=== PATIENT | male | born 1960 | race Caucasian/White ===

== ENCOUNTER 2024-12-31 21:44 | Emergency (ER) | payer BC, SELFPAY ==
[2024-12-31 21:52] VITALS: BP 149/95; PULSE 97; RESP 16; TEMP 36.4; O2SAT 98; BMI 28.7
[2024-12-31 22:05] LABS: Appearance Urine Turbid (Clear); Bilirubin Urine Negative (Negative); Blood Urine Trace-intact (Negative); Color Urine Yellow (Yellow); Glucose Urine Negative (Negative); Ketones Urine Negative (Negative); Leukocyte Esterase Urine 1+ (Negative); Nitrite Urine Negative (Negative); Protein Urine Negative (Negative); Urobilinogen Urine 0.2 (0.2-1.0)
--- NOTE | 2024-12-31 22:26 | ED.MALEGU ---
HPI - Male Genitourinary General Date Seen: 12/31/24 Chief complaint: Urogenital Problems, Male Stated complaint: bladder infection? Time Seen by Provider: 12/31/24 21:47 Source: patient and family Mode of arrival: ambulatory Limitations: no limitations History of Present Illness HPI Narrative: This very pleasant 64-year-old gentleman presents here with dysuria and frequency of urination for the last 6 hours, this came on while he was at work, every 1/2 hour he feels like he has to pass urine, some a fair bit some only a little bit drops. No blood all within this, no discoloration, denies any nausea vomiting fevers chills or back pain associated with this no previous history of UTIs, no history of STDs, he is in a monogamous relationship he did take some ibuprofen approximately at 6:00 p.m., and maybe a little bit better with this. Denies any testicular or penile pain at all, or any discharge. Related Data Sexually active: Yes Home Medications ?Medication ?Instructions ?Recorded ?Confirmed No Known Home Medications 12/31/24 12/31/24 Allergies Allergy/AdvReac Type Severity Reaction Status Date / Time No Known Drug Allergies Allergy Verified 02/19/24 16:07 Review of Systems Status of ROS: Reports: 10 or more systems reviewed and unremarkable except as noted in History and below Exam Narrative: Exam Narrative: Delightful gentleman in no apparent distress Moore seen in room 1 his abdomen shows a normal abdomen with no tenderness to palpation no masses, no CVA tenderness bowel sounds are normal, with no organomegaly normal male genitalia is appreciated. Const: Vital Signs, click to edit/add: Vital Signs - 24 hr 12/31/24 21:52 Temperature 97.6 F Pulse Rate [Pulse Oximeter] 97 Respiratory Rate 16 Blood Pressure [Ri ght Upper Arm] 149/95 H Pulse Oximetry 98 Oxygen Delivery Me thod Room Air Documenting provider has reviewed patient's vital signs: yes Course Course ED Course: His urinalysis positive, I discussed with him we should treat him for his UTI, we will use Keflex which is good coverage for the most common organisms. I warned him about antibiotic associated diarrhea and symptomatic measures using ibuprofen, culture pending. Vital Signs Vital signs: Initial Vital Signs Temperature 97.6 F 12/31/24 21:52 Temperature Source Temporal Artery Scan 12/31/24 21:52 Pulse Rate 97 12/31/24 21:52 Respiratory Rate 16 12/31/24 21:52 Blood Pressure 149/95 H 12/31/24 21:52 Blood Pressure Mean 113 H 12/31/24 21:52 Blood Pressure Position Sitting 12/31/24 21:52 Pulse Oximetry 98 12/31/24 21:52 Oxygen Delivery Method Room Air 12/31/24 21:52 Vital Signs Temperature 97.6 F 12/31/24 21:52 Pulse Rate 97 12/31/24 21:52 Respiratory Rate 16 12/31/24 21:52 Blood Pressure 149/95 H 12/31/24 21:52 Pulse Oximetry 98 12/31/24 21:52 Oxygen Delivery Method Room Air 12/31/24 21:52 Temperature 97.6 F 12/31/24 21:52 Pulse Rate 97 12/31/24 21:52 Respiratory Rate 16 12/31/24 21:52 Blood Pressure 149/95 H 12/31/24 21:52 Pulse Oximetry 98 12/31/24 21:52 Oxygen Delivery Method Room Air 12/31/24 21:52 MDM - Male Genitourinary MDM Narrative Medical decision making narrative: During this evaluation of this patient I considered multiple differential diagnosis is which included the life-threatening such as appendicitis, aortic aneurysm, mesenteric ischemia, bowel perforation, volvulus, and bowel obstruction. Other differential diagnosis is include but are not limited to cholecystitis, pancreatitis, hepatitis, gastritis, GERD, diverticulitis, peptic ulcer disease, pyelonephritis/UTI, renal colic/stone, testicular torsion as well as other acute scrotal processes, inflammatory bowel disease, as well as other etiologies Medical Records Attestation: I reviewed the patient's medical records. Lab Data Attestation: I reviewed the patient's lab results. Labs: Lab Results 12/31/24 Range/Units 21:57 Urine Color Yellow (Yellow) Urine Appearance Turbid A (Clear) Urine pH 7.0 (5.0-8.5) Ur Specific Screven 1.020 (1.000-1.030) Urine Protein Negative (Negative) Urine Glucose (UA) Negative (Negative) Urine Ketones Negative (Negative) Urine Blood Trace-intact A (Negative) Urine Nitrite Negative (Negative) Urine Bilirubin Negative (Negative) Urine Urobilinogen 0.2 (0.2-1.0) Ur Leukocyte Esterase 1+ A (Negative) Urine RBC 0-2 (0-2) Urine WBC 10-25 A (0-5) Ur Squamous Epith Cells None (None-Few) Urine Bacteria Few A (None) Discharge Plan Discharge Clinical Impression: Urinary tract infection Patient Disposition: Home, Self-Care Condition: Stable Instructions: Urinary Tract Infection in Men (DC) Additional Instructions: Home, rest, follow up with no improvement, increasing fevers chills nausea vomiting or back pain with minutes on your kidneys, take lots of probiotics with the antibiotics, as you do not want antibiotic associated diarrhea. Ibuprofen 800 mg 3 times a day for the 1st or 2nd day is very helpful also, lots of fluids Activity Level: Light activity Discharge Diet: Regular Prescriptions: No Action No Known Home Medications Follow Up/Referrals: Provider,Not a Local [Non-Staff] - Stand Alone Forms: MyHealth Info Instructions
--- OUTSIDE RECORDS SUMMARY | 2024-12-31 22:29 | XMS_ITS | Encounter Summary ---
Author Organization [employer] Address [address] [address] Care Team Providers Care School Psychology Professor Name Role Phone Suellen Faye PA-C Primary Care Provider Encounter Details Date Type Department Care Team (Late st Contact Info) Description 07/29/2012 Consent for Procedure/Treatme nt [facility] Department RH INFORMED CONSENT RECORD Social History Tobacco Use Types Packs/Day Years Used Date Smoking Tobacco: Never Smokeless Tobacco: Never Alcohol Use Standard Drinks/Week Comments Not Asked 0 (1 standard drink = 0.6 oz pur e alcohol) Sex and Gender Information Value Date Recorded Sex Assigned at Not on file Legal Sex Male 5:12 AM CDT Gender Identity Not on file Sexual Orientation Not on file 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 on file Not on file Not on file documented as of this encounter Progress Notes * [employer], PROVIDER - 07/29/2012 12:00 AM CDT documented in this encounter Plan of Treatment Not on file documented as of this encounter Visit Diagnoses Not on filedocumented in this encounter Additional Health Concerns Infection Onset Date Last Indicated Resolved Time R/O COVID19 01/22/2021 01/22/202101/23/2021 4:01 AM MEDICATION AID R/O COVID19 12/09/2021 12/09/2021 12/10/2021 2:48 PM MEDICATION AID COVID19 12/09/2021 12/09/2021 12/29/2021 3:17 AM MEDICATION AID documented as of this encounter Care Teams School Psychology Professor Relationship Specialty Start Date End Date Suellen Faye PA-C [address] [place] [address] PCP - General Physician Superintendent Operations Division 01/24/16 documented as of this encounter
--- OUTSIDE RECORDS SUMMARY | 2024-12-31 22:29 | XMS_ITS | Referral Summary ---
Author Organization [employer] Address [address] [place] [address] Care Team Providers Care Oil Refiner Name Role Phone Provider, No Primary Primary Care Provider Unava ilable Provider, No Primary Unavailable Unavailable Allergies Active Allergy Reactions Criticality Noted Date Comments Adhesive Tape-Silicones Rash Medium 01/31/2017 Morphine (Pf) Other Low 01/31/2017 Anxiety Medications HYDROcodone 5mg-acetaminophen 325 mg (AKA: NORCO) 5-325 mg oral TabletIndications:L ocalized, primary osteoarthritis of ankle or foot, left Take 1-2 tablets by mouth every 6 hours as needed for pain. 40 tablet 7 Active Social History Tobacco Use Types Packs/Day Years Used Date Smoking Tobacco: Never Alcohol Use Standard Drinks/Week Comments Yes 5 (1 standard drink = 0.6 oz pur e alcohol) weekly Sex and Gender Information Value Date Recorded Sex Assigned at Not on file Legal Sex Male 3:07 AM BOOSTER OPERATOR Gender Identity Not on file Sexual Orientation Not on file Last Filed Vital Signs Vital Sign Reading Time Taken Comments Blood Pressure 119/72 01/31/2017 5:15 PM CDT Pulse 67 01/31/2017 5:27 PM CDT Temperature 36.3 C (97.4 F) 01/31/2017 1:50 PM CDT Respiratory Rate 16 01/31/2017 5:00 PM CDT Oxygen Saturation 96% 01/31/2017 5:27 PM CDT Inhaled Oxygen Concentration - - Weight 90.7 kg (200 lb) 01/31/2017 1:50 PM CDT Height 177.8 cm (5' 10) 01/25/2017 2:20 PM BOOSTER OPERATOR Body Mass Index 28.7 01/25/2017 2:20 PM BOOSTER OPERATOR Plan of Treatment Not on file Medical Devices Implanted Type Area Leak Patcher Device Identifier Shelf Expiration Date Model / Serial / Lot Pin K-Wire Trocar Pt. 6 .54 1.4mm - [id number] Implanted:Qty: 1 on 01/31/2017 by Russ De La Cruz DPM at [facility] Pin Left: Toe [employer] 71-024 / / Screw Cannulated [place] 4.0mm X 34mm - [id number] Implanted:Qty: 1 on 01/31/2017 by Russ De La Cruz DPM at [facility] Screw Left: Toe Trilliant 200-40-034 / / Screw Cannulated [place] 4.0mm X 28mm - [id number] Implanted:Qty: 1 on 01/31/2017 by Russ De La Cruz DPM at [facility] Screw Left: Toe Trilliant 200-40-028 / / Insurance [employer] [facility] [facility] [employer]ACH[employer]IL[employer] [id number] Care Teams Oil Refiner Relationship Specialty Start Date End Date Provider, No Primary . NACHO TORRES [id number] PCP - General 01/23/17 Provider, No Primary . NACHO TORRES [id number] 12/17/17 Additional Source Comments PLEASE NOTE: Replies to this message will not be received.[facility] and [facility]
--- OUTSIDE RECORDS SUMMARY | 2024-12-31 22:29 | XMS_ITS | Encounter Summary ---
Author Organization [facility] Address [address] [place] [id number] Care Team Providers Care Invoice Classification Clerk Name Role Phone Provider, No Primary Primary Care Provider Unava ilable Provider, No Primary Unavailable Unavailable Encounter Details Date Type Department Care Team (Late st Contact Info) Description 07/28/[address] [address] Social History Tobacco Use Types Packs/Day Years Used Date Smoking Tobacco: Never Assessed Sex and Gender Information Value Date Recorded Sex Assigned at Not on file Legal Sex Male 3:07 AM RADIATOR SPECIALIST Gender Identity Not on file Sexual Orientation Not on file documented as of this encounter Plan of Treatment Not on file documented as of this encounter Procedures Procedure Name Priority Date/Time Associated Diagnosis Comments RADIOLOGY - S 07/28/1980 8:53 PM CDT documented in this encounter Results * RADIOLOGY - S (07/28/1980 8:53 PM CDT) Anatomical Region Laterality Modality Other us Scan Kianna PROCEDURE NOTE Final Result documented in this encounter Visit Diagnoses Not on filedocumented in this encounter Care Teams Invoice Classification Clerk Relationship Specialty Start Date End Date Provider, No Primary . NACHO TORRES [address] PCP - General 01/23/17 Provider, No Primary . NACHO TORRES [id number] 12/17/17 documented as of this encounter Additional Source Comments PLEASE NOTE: Replies to this message will not be received.[facility] and [facility]
--- OUTSIDE RECORDS SUMMARY | 2024-12-31 22:29 | XMS_ITS | Clinical Summary ---
Author Organization [facility] Address [place], [place] [address] Care Team Providers Care Second Watch Sergeant Name Role Phone Wilmar Holt MD Primary Care Provider Allergies Active Allergy Reactions Criticality Noted Date Comments Adhesive Tape-Silicones Rash Medium 01/31/2017 EKG patches, steri strips Morphine Anxiety 11/15/2016 Morphine (Pf) Other - Describe In Comment Field Low 01/31/2017 Anxiety Medications clobetasol cream 0.05% (TEMOVATE) 0.05 % creamIndication s:Rash Apply topically to affected area(s) two times daily. 30 g 3 Active fluorouracil 5% topical (EFUDEX) 5 % creamIndication s:Actinic keratoses Apply to the scalp two times daily for two weeks. 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): Symptoms resolved Resolved Problems Problem Noted Date Diagnosed Date Resolved Date Gastro-esophageal reflux dis ease with esophagitis 02/11/2024 02/11/2024 Immunizations Name Administration Dates Next Due Influenza Virus, Unspecified 10/01/2016 Influenza, IIV3 (Age 6-35 mos) 10/16/2015 Influenza, IIV3 (Age >=3 years) 09/17/20 08,09/10/2006,10/09/2005,09/23/20 03,09/09/1999 Influenza, IIV4 09/19/2019,10/20/2014 Influenza, IIV4 (=>6mos) MDV 09/21/2020, 09/19/2019,10/21/2018,08/22/20 17,10/30/2016 Td (Age >=7 Years) 06/02/2003,11/18/1995 Tdap 11/22/2019,11/06/2011 Zoster (Shingrix-RZV, recombinant) 02/10/2020, Family History Relation Name Status Comments Father (Age 91) Social History Tobacco Use Types Packs/Day Years Used Date Smoking Tobacco: Never Smokeless Tobacco: Never Tobacco Cessation:Counseling Given: Not Answered Alcohol Use Standard Drinks/Week Comments Yes 0 (1 standard drink = 0.6 oz pur e alcohol) 5 drinks per week PHQ-2 Answer Date Recorded PHQ-2 TOTAL SCORE 0 02/11/2024 Social Connections Answer Date Recorded Do you often feel lonely or isolated from those around you? 0 02/11/2024 Financial Resource Strain Answer Date R ecorded Difficulty of Paying Living Expenses 3 02/11/2024 Difficulty of Paying Living Expenses Not on file 02/11/2024 Food Insecurity Answer Date Recorded Do you worry your food will run out before you are able to buy more? 1 02/11/2024 Transportation Needs Answer Date Record ed Does lack of transportation keep you from medica l appointments? 1 02/11/2024 Does lack of transportation keep you from work, meetings or getting things that you need? 1 02/11/2024 Housing Stability Answer Date Recorded What is your housing situation today? 1 02/11/2024 Utilities Answer Date Recorded Do you have trouble paying f or utilities (for example, heat, electricity, water, phone)? 1 02/11/2024 Sex and Gender Information Value Date Recorded Sex Assigned at Not on file Legal Sex Male 5:47 AM LAB ENGINEER Gender Identity Not on file Sexual Orientation Not on file Obstetrics History Last Filed Vital Signs Vital Sign Reading Time Taken Comments Blood Pressure 102/68 02/11/2024 9:06 AM CDT Pulse 60 02/11/2024 9:06 AM CDT Temperature 37 C (98.6 F) 01/23/2017 10:11 AM LAB ENGINEER Respiratory Rate 18 01/01/2020 11:32 AM LAB ENGINEER Oxygen Saturation 98% 01/01/2020 11:32 AM LAB ENGINEER Inhaled Oxygen Concentration - - Weight 90.7 kg (200 lb) 02/11/2024 9:06 AM CDT Height 176.5 cm (5' 9.5) 02/11/2024 9:06 AM CDT Body Mass Index 29.11 02/11/2024 9:06 AM CDT Plan of Treatment Health Maintenance Due Date Last Done Comments HIV for age 15-65 1977 Pneumococcal series for age 50+ (1 of 1 - PCV) 2012 COVID-19 vaccine series (2 - season) 2024 09/14/2021 Influenza for age 50-64 07/20/2024 09/21/20 20, 09/19/2019, 09/19/2019, Additional history exists BMI (ht and wt on same day) for age 18+ 02/10/2025 02/11/2024, 12/27/2022, 11/08/2021, Additional history exists Depression screening for age 12+ 02/10/2025 02/11/2024, 12/27/2022, 11/08/2021, Additional history exists Lipids for age 45-75 02/10/2029 02/11/2024, 12/27/2022, 11/08/2021, Additional history exists Tetanus booster 11/22/2029 11/22/2019, 10/19, 06/02/2003, Additional history exists Colonoscopy through age 75 12/05/203112/05, 12/05/2021, 12/05/2021, Additional history exists RSV vaccine for adults or (1 - 1-dose 75+ series) 2037 Hepatitis C screening for ag e 18-79 Completed 10/21/2018 Tdap Completed 11/22/2019, 11/06/2011 Zoster (shingles) series for age 50+ Completed 02/10/2020, 09/02/2019 Procedures Procedure Name Priority Date/Time Associated Diagnosis Comments LIPID PANEL W REFLEX MEASURED LDL Routine 02/11/2024 9:48 AM CDT Lipid screening SCAN-COLONOSCOPY 12/05/2021 12:0 0 AM LAB ENGINEER ANTI HCV Routine 10/21/2018 10:56 AM LAB ENGINEER Encounter for hepatitis C screening test for low risk patient from Last 3 Months or Most Recently Relevant to Health Maintenance Results * (ABNORMAL) LIPID PANEL W REFLEX MEASURED LDL (02/11/2024 9:48 AM CDT) Pathologist [facility] CHOLESTEROL,TOTAL 190 100 - 199 mg/dL 02/11/2024 3:36 PM CDT [facility] Comment: Cholesterol, Total Reference Ranges Desirable <200 mg/dL Borderline 200-239 mg/dL High >=240 mg/dL TRIGLYCERIDES 115 <150 mg/dL 02/11/2024 3:36 PM CDT [facility] HDL CHOLESTEROL 39(L) >40 mg/dL 3:36 PM CDT [facility] NON-HDL CHOLESTEROL 151(H) <145 mg/dl 02/11/2024 3:36 PM CDT [facility] CHOL/HDL RATIO 4.87(H) <4.50 02/11/2024 3:36 PM CDT [facility] LDL CHOLESTEROL 128 <=130 mg/dL 02/11/2024 3:36 PM CDT [facility] VLDL CHOLESTEROL 23 <=30 mg/dL 02/11/2024 3:36 PM CDT [facility] PROVIDER ORDERED STATUS RANDOM 02/11/2024 3:36 PM CDT [facility] Blood BLOOD SPECIMEN / Unknown Venipuncture / Unknown 02/11/2024 9:48 AM CDT 02/11/2024 9:48 AM CDT Wilmar Holt MD CHEMISTRY Final R esult [facility] [address] [place] [address], * SCAN-COLONOSCOPY (12/05/2021 12:00 AM LAB ENGINEER) us Scanner OTHER Final Result * ANTI HCV (10/21/2018 10:56 AM LAB ENGINEER) HEPATITIS C ANTIBODY Non-React audrey Non-React audrey 10/22/2018 2:53 AM LAB ENGINEER [facility] Comment:Antibodies to HCV no t detected; does not exclude the possibility of exposure to HCV. Blood BLOOD SPECIMEN / Unknown Venipuncture / Unknown 10/21/2018 10:56 AM LAB ENGINEER 10/21/2018 10:59 AM LAB ENGINEER us Wilmar Holt MD SEND OUTS Final R esult [facility] [address] [place] [address], from Last 3 Months or Most Recently Relevant to Health Maintenance Insurance Care Teams Second Watch Sergeant Relationship Specialty [place] [address] [place] [address] PCP - General Family Practice 12/25/19
--- OUTSIDE RECORDS SUMMARY | 2024-12-31 22:29 | XMS_ITS | Encounter Summary ---
Author Organization [employer] Address [address], [place] [address] Care Team Providers Care Human Resources Generalist Name Role Phone Suellen Faye PA-C Primary Care Provider Encounter Details Date Type Department Care Team (Late st Contact Info) Description 01/20/2003 Hospital External to Lucas Cruz MD [address] [place] [address] [place] [id number] [facility] Social History Tobacco Use Types Packs/Day Years Used Date Smoking Tobacco: Never Smokeless Tobacco: Never Alcohol Use Standard Drinks/Week Comments Yes 0 (1 standard drink = 0.6 oz pur e alcohol) occ Sex and Gender Information Value Date Recorded [...] as of this encounter Progress Notes * Lucas Cruz - 01/20/2003 12:00 AM REIMBURSEMENT COUNSELOR BURSEMENT COUNSELOR documented in this encounter Plan of Treatment Not on file documented as of this encounter Visit Diagnoses Not on filedocumented in this encounter Additional Health Concerns Infection Onset Date Last Indicated Resolved Time R/O COVID19 01/22/2021 01/22/2021 01/23/2021 4:01 AM REIMBURSEMENT COUNSELOR R/O COVID19 12/09/2021 12/09/2021 12/10/2021 2:48 PM REIMBURSEMENT COUNSELOR COVID19 12/09/2021 12/09/2021 12/29/2021 3:17 AM REIMBURSEMENT COUNSELOR documented as of this encounter Care Teams Human Resources Generalist Relationship Specialty Start Date End Date Suellen Faye PA-C [address] [place] [address] PCP - General Physician Paraprofessional Education Assistant 01/24/16 documented as of this encounter
--- OUTSIDE RECORDS SUMMARY | 2024-12-31 22:29 | XMS_ITS | Encounter Summary ---
Author Organization [facility] Address [address] [place] [address] Care Team Providers Care Family Support Coordinator Name Role Phone Provider, No Primary Primary Care Provider Unava ilable Provider, No Primary Unavailable Unavailable Encounter Details Date Type Department Care Team (Late st Contact Info) Description 05/[birth year]/[address] [address] Social History Tobacco Use Types Packs/Day Years Used Date Smoking Tobacco: Never Assessed Sex and Gender Information Value Date Recorded Sex Assigned at Not on file Legal Sex Male 3:07 AM VENETIAN BLIND MACHINE OPERATOR Gender Identity Not on file Sexual Orientation Not on file documented as of this encounter Plan of Treatment Not on file documented as of this encounter Procedures Procedure Name Priority Date/Time Associated Diagnosis Comments RADIOLOGY - S 05/29/1969 8:53 PM CDT documented in this encounter Results * RADIOLOGY - S (05/29/1969 8:53 PM CDT) Anatomical Region Laterality Modality Other us Scan Kianna PROCEDURE NOTE Final Result documented in this encounter Visit Diagnoses Not on filedocumented in this encounter Care Teams Family Support Coordinator Relationship Specialty Start Date End Date Provider, No Primary . NACHO TORRES [address] PCP - General 01/23/17 Provider, No Primary . NACHO TORRES [id number] 12/17/17 documented as of this encounter Additional Source Comments PLEASE NOTE: Replies to this message will not be received.[facility] and [facility]
--- OUTSIDE RECORDS SUMMARY | 2024-12-31 22:29 | XMS_ITS | Clinical Summary ---
Author Organization [employer] Address [address] [place] [address] Care Team Providers Care Pack Worker Name Role Phone Provider, No Primary Primary [...] on file Legal Sex Male 3:07 AM RIGGING FOREMAN Gender Identity Not on file Sexual Orientation [...] 177.8 cm (5' 10) 01/25/2017 2:20 PM RIGGING FOREMAN Body Mass Index 28.7 01/25/2017 2:20 PM RIGGING FOREMAN Plan of Treatment Not on file Medical Devices Implanted Type Area Spanisher Device Identifier Shelf Expiration Date Model / Serial / Lot Pin K-Wire Trocar Pt. 6 .54 1.4mm - [id number] Implanted:Qty: 1 on 01/31/2017 by Russ De La Cruz DPM at [facility] Pin Left: Toe [employer] 71-024 / / Screw Cannulated [place] 4.0mm X 34mm - [id number] Implanted:Qty: 1 on 01/31/2017 by Russ De La Cruz DPM at [facility] Screw Left: Toe Trilliant 200-40-034 / / Screw Cannulated [place] 4.0mm X 28mm - [id number] Implanted:Qty: 1 on 01/31/2017 by Russ De La Cruz DPM at [facility] Screw Left: Toe Trilliant 200-40-028 / / Insurance [facility] [employer] [id number] Care Teams Pack Worker Relationship Specialty Start Date End Date Provider, No Primary . NACHO TORRES [address] PCP - General 01/23/17 Provider, No Primary . NACHO TORRES [id number] 12/17/17 Additional Source Comments PLEASE NOTE: Replies to this message will not be received.[facility] and [facility]
--- OUTSIDE RECORDS SUMMARY | 2024-12-31 22:29 | XMS_ITS | Encounter Summary ---
Author Organization [employer] Address [address] [address] Care Team Providers Care Anatomic Pathologist Name Role Phone Suellen Faye PA-C Primary Care Provider Encounter Details Date Type Department Care Team (Latest Contact Info) Description 01/30/1999 Orders Only Blayne Cristina Social History Tobacco Use Types Packs/Day Years [...] R/O COVID19 01/22/2021 01/22/2021 01/23/2021 4:01 AM E COMMERCE RETAILER R/O COVID19 12/09/2021 12/09/2021 12/10/2021 2:48 PM E COMMERCE RETAILER COVID19 12/09/2021 12/09/2021 12/29/2021 3:17 AM E COMMERCE RETAILER documented as of this encounter Care Teams Anatomic Pathologist Relationship Specialty Start Date End Date Suellen Faye PA-C [address] [place] [address] PCP - General Physician Recordak Operator 01/24/16 documented as of this encounter
--- OUTSIDE RECORDS SUMMARY | 2024-12-31 22:29 | XMS_ITS | Encounter Summary ---
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 NACHO TORRES [address] PCP - General 01/23/17 Provider, No Primary . NACHO TORRES [id number] 12/17/17 documented as of this encounter Additional Source Comments PLEASE NOTE: Replies to this message will not be received.[facility] and [facility]
--- OUTSIDE RECORDS SUMMARY | 2024-12-31 22:29 | XMS_ITS | Encounter Summary ---
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
--- OUTSIDE RECORDS SUMMARY | 2024-12-31 22:30 | XMS_ITS | Encounter Summary ---
Author Organization [employer] Address [address], [place] [address] Care Team Providers Care Merchant Patroller Name Role Phone Suellen Faye PA-C Primary Care Provider Encounter Details Date Type Department Care Team (Late st Contact Info) Description 04/08/2016 Emergency Room External to [facility] ARM INJURY Social History Tobacco Use Types Packs/Day Years [...] R/O COVID19 01/22/2021 01/22/2021 01/23/2021 4:01 AM TOPSTITCHER ZIGZAG R/O COVID19 12/09/2021 12/09/2021 12/10/2021 2:48 PM TOPSTITCHER ZIGZAG COVID19 12/09/2021 12/09/2021 12/29/2021 3:17 AM TOPSTITCHER ZIGZAG documented as of this encounter Care Teams Merchant Patroller Relationship Specialty Start Date End Date Suellen Faye PA-C [address] [place] [address] PCP - General Physician Health/Safety Job Titles 01/24/16 documented as of this encounter
--- OUTSIDE RECORDS SUMMARY | 2024-12-31 22:30 | XMS_ITS | Data Portability ---
Author Organization [place] - [facility] Address [address] [place] [address] Assessment Encounter Date Assessment Date Assessment LastModified by Organization Details LastModified Time 07/26/2017 07/26/2017 6 months status post first metatarsocuneiform arthrodesis hemorrhage correction left, left ankle injury Discuss continued care plan with the patient. Overall he is doing well with regard to the left midfoot with no limitations no difficulties. I did add an extrinsic forefoot post to the left device for better midfoot control. For the left ankle dispensed a Tri-Lock to be used as much as needed for the next 2-4 weeks. See him back at that point based on how he is doing [email or web address] Not available 07/29/2017 11:19:18 09/06/2017 09/06/2017 Segment status p ost first metatarsocuneiform arthrodesis, hammer digit correction left Overall he seems to be doing fairly well. Able to walk up to 2 miles at this point including running. Discussed monitoring. She has some on and off pain at this point we will plan on seeing him back in the next 2-3 months if there continues to be discomfort otherwise as needed [email or web address] Not available 09/06/2017 23:46:11 11/08/2017 11/08/2017 9 months S/P 1st metatarsocuneiform arthrodesis, hammerdigit correction left I advised patient and his that I have no concerns, he is doing well both clinically and radiographically. No limitations this date. Advised patient to continue with orthotic use. Return to the clinic on a yearly basis. [email or web address] Not available 11/08/2017 11:09:38 02/07/2018 02/07/[address] first metatarsocuneiform arthrodesis, hammer digit correction left , pronation syndrome Discussed continued care plan with the patient overall. We will proceed with casting for new orthotic devices. Would like a second pair at the same time. We will see him back in 3 weeks for dispensing and fitting. [email or web address] Not available 02/07/2018 20:59:52 02/28/2018 02/28/2018 Status post firs t metatarsocuneiform arthrodesis, hammer digit syndrome left, pronation syndrome, history of midfoot arthralgia. All aspects of orthotic use have been explained in detail. We discussed the break-in instructions with appropriate shoe gear. Several locations were discussed relative to purchasing shoe gear that will appropriately accept an orthotic. The patient is aware they may begin wearing the orthotics with the existing shoe gear. Orthoses were dispensed to patient today after being fitted to the patient's feet in both weight-bearing and non-weight bearing attitudes. The patient was instructed to gradually increase the amount of time they are wearing the orthoses until they are wearing the orthoses timers inspector. The guidelines were discussed as an hour the first day followed by two and three hours the respective second and third days, etc. On day six, the patient can wear the orthotics at all times. The patient seemed to understand all aspects of orthotic therapy and the subsequent rationale for their use. was instructed to call the office if any signs of irritation were noted including redness, blistering, or callous formation or should questions or concerns arise. An appointment has been scheduled for 4 weeks for further evaluation. [email or web address] Not available 02/28/2018 14:48:54 Plan of Treatment Reminders Order Date Submit Date Provider Last Modified By Organization Details Last Modified Time Details Appointments None recorded. Lab None recorded. Referral None recorded. Procedures orthotic casting (PROC) 2017 018 MITZI Garcia DPM, [address] [place], [address], 08:40:26 orthotic casting (PROC) 2017 018 MITZI Garcia DPM, [address] [place], [address], 8 08:40:12 orthotic casting (PROC) 2017 018 MITZI Garcia DPM, [address] [place], [address], 8 08:39:46 orthotic casting (PROC) 2017 018 MITZI Garcia DPM, [address] [place], [address], 8 08:39:38 Surgeries None recorded. Imaging None recorded. Medication Orders None recorded. Patient TargetsNo targets recorded. Patient Instructions Encounter Date Encounter Id Patient Instructions Last Modified By Organization Details Last Modified Time 07/26/2017 [id number] ankle sprain: care instructions [email or web address] Not available 07/30/2017 08:24:06 Reason for Referral None Reported. Results Created Date Observation Date Name Description Value Unit Range Abnormal Flag Note LastModifiedBy Organization Detail LastModifiedTime Result Notes None recorded. Problems Name Problem SNOMED Code Status Onset Date Resolution Date Notes Provider Name and Address Organization Details Recorded Time Osteoarthritis of foot joint 909664777 Active 2016 Russ De La Cruz DPM [address] [place], [address], [facility] 7 14:09:33 Problem Notes None recorded. Procedures Surgical History Date Name Laterality Status Provider Name and Address Organization Details Recorded Time Foot Surgery completed Esha Ferrari [facility] 12/21/2016 10:34:49 Imaging Results None recorded. Procedure Notes None recorded. Medical Equipment None Reported. Allergies No known drug allergies Medications Name Sig Start Date Stop Date Status Note LastModified by Organization Details LastModified Time hydrocodone 5 mg-acetaminop hen 325 mg tablet 2016 completed Not Available Not Available Not Available amoxicillin 875 mg tablet active Not Available Not Availabl e Not Available Vitals Date Recorded Body height Body mass index (BMI) Body weight Provider Name and Address Organization Details Last Updated DateTime 07/26/2017 177.8 cm 28.7 kg/m2 76089.47 g Juanita Amanda [facility] 07/26/2017 10:39:26 Date Recorded Body height Body mass index (BMI) Body weight Provider Name and Address Organization Details Last Updated DateTime 09/06/2017 177.8 cm 28.7 kg/m2 96008.47 g Chantel Thomas [facility] 09/06/2017 09:35:01 Date Recorded Body height Body mass index (BMI) Body weight Provider Name and Address Organization Details Last Updated DateTime 11/08/2017 177.8 cm 28.7 kg/m2 45564.47 deon Lay [facility] 11/08/2017 10:29:02 Date Recorded Body height Body mass index (BMI) Body weight Provider Name and Address Organization Details Last Updated DateTime 02/07/2018 177.8 cm 28.7 kg/m2 96870.47 deon Thomas [facility] 02/07/2018 11:56:32 Social History Question Answer Notes LastModified by Organizat ion Details LastModified Time Tobacco Smoking Status [facility] 12/21/2016 10:33:47 What Is Your Level Of Alcohol Consumption? Occasional Information not available 12/21/2016 Marital Status Informatio n not available 12/21/2016 What Was The Date Of Your Most Recent Tobacco Screening? 02/07/2018 Information n ot available 06/11/2019 Sex: Unknown Functional Status None recorded. Mental Status None recorded. Family History Nothing Reported. Medical History Condition Response Coronary Artery Disease N Gout N Edema N Arthritis N Blood Clot N Cancer N Stroke N Leg or Foot Ulcers N Raynaud's Disease N Polio N Rheumatoid Arthritis N Headaches N Fibromyalgia N Kidney Disease N Artificial Joints N Bleeding Disorder N Tuberculosis N AIDS/HIV N Asthma N Substance Abuse N Peripheral Vascular Disease N Hepatitis N Pulmonary Embolism N Hernia N Lung Disease N Pacemaker N Deep Vein Thrombosis N Varicose Veins N Hudson Bite N Liver Disease N Organ Transplant N Foot Deformity N Dialysis N Dyslipidemia N Thyroid Problems N Anemia N Back Pain N Diabetes N Seizures/Epilepsy N Heart Disease N Hypertension N Osteoporosis N Past Encounters Encounter ID Performer Location Encounter Start Date Encounter Closed Date Diagnosis/Indication Diagnosis SNOMED-CT Code Diagnosis ICD10 Code Diagnosis Note [id number] Russ De La Cruz DPM Main Office [address] [place] [address] 12/21/2016 10:22:57 12/21/2016 12:01:09 Osteoarthritis of foot joint 836388032 M19.079 Exostosis 202097936 M77. 9 Hammer toe 089002968 M20 .42 Pronation deformity of the foot 511729487 M21.6X9 [id number] Russ De La Cruz DPM Main [address] [place] [address] 02/02/2017 11:30:06 02/02/2017 13:05:51 Postoperative visit 714438082 Z09 Osteoarthr itis of foot joint 085845124 M19.079 [id number] Russ De La Cruz DPM Main [address] [place] [address] 02/22/2017 11:20:06 02/22/2017 12:19:39 Osteoarthritis of foot joint 282575124 M19.079 Postoperative care 91289 9007 Z48.89 [id number] Russ De La Cruz DPM [address] [place] [address] 03/15/2017 10:09:25 03/15/2017 11:06:48 Osteoarthritis of foot joint 091587211 M19.079 [id number] uRss De La Cruz DPM Main [address] [place] [address] 04/05/2017 09:58:54 04/05/2017 11:12:04 Osteoarthritis of foot joint 016584215 M19.079 Postoperative care 20790 9007 Z48.89 [id number] Russ eD La Cruz DPM [address] [place] [address] 04/26/2017 09:55:43 04/26/2017 10:37:13 Osteoarthritis of foot joint 994454538 M19.079 Postoperative care 87859 9007 Z48.89 [id number] Russ De La Cruz DPM Main [address] [place] [address] 05/24/2017 10:04:59 05/24/2017 10:40:04 Osteoarthritis of foot joint 983842011 M19.079 Postoperative care 13651 9007 Z48.89 [id number] Russ De La Cruz DPM Main [address] [place] [address] 07/26/2017 09:51:36 07/26/2017 11:02:11 Postoperative visit 143195747 Z09 Osteoarthr itis of foot joint 816639724 M19.079 Sprain of ankle 13248438 S93.412A [id number] Russ De La Cruz DPM Main [address] [place] [address] 09/06/2017 09:29:25 09/06/2017 09:53:30 Osteoarthritis of foot joint 092374395 M19.079 [id number] Russ De La Cruz DPM Main [address] [place] [address] 11/08/2017 10:22:59 11/08/2017 11:12:41 Osteoarthritis of foot joint 791470593 M19.079 [id number] Russ De La Cruz DPM Main [address] [place] [address] 02/07/2018 11:52:04 02/07/2018 12:21:57 Osteoarthritis of foot joint 113651980 M19.072 Pronation deformity of the foot 848702754 M21.6X9 Pronation of foot 819902 03 M21.6X1 M21.6X2 [id number] Russ De La Cruz DPM [address] [place] [address] 02/28/2018 13:27:41 02/28/2018 14:26:45 Congenital pes planus of left foot 7215902793 1962765 Q66.52 Congenital pes planus of right foot 0831912245 4879764 Q66.51 Pronation deformity of the foot 949390517 M21.6X1 M21.6X2 Health Concerns Section Related Observation LastModified by Organization Detai ls LastModified Time None Recorded Concern Status LastModified by Organization Details LastModified Time None Recorded Advance Directives Directive None Recorded Payers Encounter Date Sequence Insurance Name Policy Number Policy Mendieta Covered Member ID Mendieta Member ID Guarantor Name 07/26/2017 1 [employer] [employer] 113 Kobi Tran [id number] Kobi Tran 09/06/2017 1 [employer] [employer] [place] 113 Kobi Tran [id number] Kobi Tran 11/08/2017 1 [employer] [employer] 113 Kobi Tran [id number] Kobi Tran 02/07/2018 1 [facility]: [employer] EMPLOYEE PROGRAM 113 Kobi Tran [id number] Kobi Tran 02/28/2018 1 [facility] [employer]: [employer] 113 Kobi Tran [id number] Kobi Tran Notes Date Note Type Note Provider Name and Address Organization Details Recorded Time 7 text/html Return visit for patient 6 months status post first metatarsocuneiform arthrodesis and hammer digit correction continues to do well overall. Did have a slip injury about a month ago twisted his left heel with a bit of soreness at times but otherwise doing well with regard to the left midfoot. Russ De La Cruz DPM [address] [place], [address], [facility] 07/29/2017 11:20:40 7 text/html return visit for patient 7 months s/p first metatarsocuneiform arthrodesis, hammer digit correction left. Doing better overall. Also doing well with regard to the left ankle injury. Russ De La Cruz DPM [address] [place], [address], [facility] 09/06/2017 23:46:29 7 text/html CC; OsteoarthritisDaniel returns with his 9 months S/P 1st metatarsocuneiform arthrodesis, hammerdigit correction left. Patient relates the side of the foot tends to pop out. He is also having strange feelings to the left 2nd digit when he gets up in the morning. He has returned to running and other activities of daily living. Russ De La Cruz DPM [address] [place], [address], [facility] 11/08/2017 11:34:08 8 text/html Return visit for patient follow-up orthotic devices. Generally has been doing quite well but feels like the devices have worn I would like to proceed with new devices. Russ De La Cruz DPM [address] [place], [address], [facility] 02/12/2018 22:09:15 8 text/html Patient returns to pick 2 pair of custom molded orthotics. They deny any new complaints or concerns today. Russ De La Cruz, LENA [address] [place], [address], [facility] 02/28/2018 14:49:15
--- OUTSIDE RECORDS SUMMARY | 2024-12-31 22:30 | XMS_ITS | Clinical Summary ---
Author Organization [facility] Address [address] [place] [address] Care Team Providers Care Solutions Architect Consultant Name Role Phone Suellen Faye PA-C Primary Care Provider Source Comments You are receiving this document as you are listed as the primary care provider,follow-up provider, or the patient has been referred to you for consultation.This is in compliance with the Medicare andMedicaid EHR Incentive Program,which states Providers who transition their patient to another setting of careor provider of care or refers their patient to another provider of care shouldprovide summary care record for each transition of care or referral. [facility] Allergies Active Allergy Reactions Criticality Noted Date Comments Adhesive Rash Medium 06/16/2019 EKG silicone Steri strips Morphine Anxiety Medium 11/15/2016 Medications clobetasol (TEMOVATE) 0.05 % cream Apply topically. 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 [address] [address] [address] [place] [address] Enedina Bolaños DO Pain in both knees, unspecified chronicity 10/28/2024 3:10 PM OVERHEAD CLEANER MAINTAINER Office Visit [facility] [address] [address] [address] [place] [id number] Enedina Bolaños, Primary osteoarthritis of left knee (Primary Dx); Acute pain of both knees from Last 3 Months Immunizations Immunization Administration Dates Next Due Flu Vac (3+ yrs) 09/10/2006, 5,09/23/2003,1998 Flu Vac Preserv Free (3+yrs) 10/16/2015 Influenza IIV4 (Quadrivalent ) 0.5mL (17771) 10/20/2014 Influenza Vaccine (3+years) ([facility]) 09/17/2008 Influenza, Unspecified Formulation 10/01/2016 Td 06/02/2003,11/18/1995 Tdap 11/06/2011 Varicella 01/19/1999(Deferred: Immune by Savita romo) Family History Medical History Relation Name Comments Cancer, Prostate Father Diabetes, Type II Father Cataract Mother Coronary Artery Disease Mother Diabetes, Type II Mother Hypertension Mother Inflammatory Bowel Disease Mother U lcerative colitis, diagnosed in her 40's, colectomy in her 50's Macular Degeneration Mother Hypertension Brother 3 Cerebrovascular Disease Maternal Grandmother Cancer, Prostate Other 2 Paternal Un john Coronary Artery Disease Paternal Grandmother of [place] 70's Relation Name Status Comments Father (Age 90 cancer) Mother Alive Brother 1 Alive Brother 2 Alive Brother 3 Daughter Alive Maternal Grandfather Maternal Grandmother Other 1 Alive Other 2 Paternal Grandfather Paternal Grandmother Sister 1 Alive Sister 2 Alive Son 1 Alive Son 2 Alive Social History Tobacco Use Types Packs/Day Years [...] file Not on file Not on file Last Filed Vital Signs Vital Sign Reading Time Taken Comments Blood Pressure 129/89 08/27/2024 6:03 PM CDT Pulse 60 08/27/2024 6:03 PM CDT Temperature 36.7 C (98 F) 10/28/2024 3:14 PM OVERHEAD CLEANER MAINTAINER Respiratory Rate 16 08/28/2023 3:08 PM CDT Oxygen Saturation 100% 08/28/2023 3:08 PM CDT Inhaled Oxygen Concentration - - Weight 93 kg (205 lb) 10/28/2024 3:14 PM OVERHEAD CLEANER MAINTAINER Height 175.3 cm (5' 9) 10/28/2024 3:14 PM OVERHEAD CLEANER MAINTAINER Body Mass Index 30.27 10/28/2024 3:14 PM OVERHEAD CLEANER MAINTAINER Plan of Treatment Health Maintenance Due Date Last Done Comments Diabetes Screening- (based on age and BMI) 1960 Hep C Screening (Preventive Services) 1960 HIV Screening (Preventive Services) 1978 Adult Preventive Visit 12/16/2016 6, 07/20/2010, 05/30/2006, Additional history exists Colonoscopy 11/02/2020 11/02/2015, 07/20, 07/29/2012 Cholesterol 12/16/2020 12/16/2015, 11/2009, 05/30/2006, Additional history exists PSA Screening Discussion 12/27/2023 023, 12/16/2015, 01/20/2013, Additional history exists COVID-19 Vaccine ( season) 2024 09/14/2021 Influenza (#1) 2024 09/21/2020, 11/0 11/2018, 10/21/2018, Additional history exists DTaP/Tdap/Td (3 - Tdap) 11/22/2029 11/22/19 20, 11/06/2011, 06/02/2003, Additional history exists RSV (1 - 1-dose 75+ series) 2037 Zoster/Shingles Completed 02/10/2020, 09/02/2019 HepA Aged Out No longer eligi ble based on patient's age to complete this topic HepB Aged Out No longer eligi ble based on patient's age to complete this topic Hib Aged Out No longer eligi ble based on patient's age to complete this topic IPV (Polio) Aged Out No longer eligi ble based on patient's age to complete this topic MCV4 Aged Out No longer eligi ble based on patient's age to complete this topic Pneumococcal Aged Out No longer eligi ble based on patient's age to complete this topic Procedures Procedure Name Priority Date/Time Associated Diagnosis Comments XR KNEE BILAT 3 VIEWS Routine 10/28/2024 3:31 PM OVERHEAD CLEANER MAINTAINER Pain in both knees, unspecified chronicity PROSTATIC SPECIFIC ANTIGEN(SCREEN) Routine 12/16/2015 10:31 AM OVERHEAD CLEANER MAINTAINER Encounter for routine adult health examination without abnormal findings Enlarged prostate LIPID PANEL, FAST > 12 HOUR Routine 12/16/2015 10:31 AM OVERHEAD CLEANER MAINTAINER Encounter for routine adult health examination without abnormal findings COLONOSCOPY Routine 11/02/2015 8:11 AM OVERHEAD CLEANER MAINTAINER Screen for colon cancer from Last 3 Months or Most Recently Relevant to Health Maintenance Results * XR Knee Bilat 3 Views (10/28/2024 3:31 PM OVERHEAD CLEANER MAINTAINER) Anatomical Region Laterality Modality Lower Extremity, Knee Digital Ra diography 10/28/2024 3:21 PM OVERHEAD CLEANER MAINTAINER Narrative 10/28/2024 4:14 PM OVERHEAD CLEANER MAINTAINER COMPARISON: None. FINDINGS: 3 views obtained of the bilateral knees. Right: Mild degenerative changes in the medial and patellofemoral compartment. No fracture. Left: Mild degenerative changes in the patellofemoral compartment. Small joint effusion. No fracture. Procedure Note Nikolai Dowd MD - 10/28/2024 COMPARISON: None. FINDINGS: 3 views obtained of the bilateral knees. Right: Mild degenerative changes in the medial and patellofemoralcompartment. No fracture. Left: Mild degenerative changes in the patellofemoral compartment. Smalljoint effusion. No fracture. Enedina Bolaños DO RAD GD Final Resu lt * PROSTATIC SPECIFIC ANTIGEN(SCREEN) (12/16/2015 10:31 AM OVERHEAD CLEANER MAINTAINER) Prostatic Spec Ag 1.38 0.00 - 4.00 ng/ml [facility] Comment: The OCD Chemiluminescence PSA immunoassay is used. Results obtained with different test methods or kits cannot be used interchangeably. 12/16/2015 10:3 1 AM OVERHEAD CLEANER MAINTAINER 12/16/2015 10:32 AM OVERHEAD CLEANER MAINTAINER Narrative [facility] - 12/16/2015 4:15 PM OVERHEAD CLEANER MAINTAINER Performed at [facility], [address] [place] [address] Joshua Esposito MD LAB_1 Final Result [facility] [phone] * (ABNORMAL) LIPID PANEL, FAST > 12 HOUR (recommended for men over age 34) (12/16/2015 10:31 AM OVERHEAD CLEANER MAINTAINER) Hours Fasting 12 hours [facility] Cholesterol 218(H) 0 - 199 mg/dl [facility] Triglyceride 210(H) 0 - 149 mg/dl [facility] HDL 43 >40 mg/dl [facility] LDL, Calc. 133(H) 0 - 129 mg/dl [facility] Non HDL Chol, Calc 175 mg/dl [facility] 12/16/2015 10:3 1 AM OVERHEAD CLEANER MAINTAINER 12/16/2015 10:32 AM OVERHEAD CLEANER MAINTAINER Narrative [facility] - 12/16/2015 4:15 PM OVERHEAD CLEANER MAINTAINER Performed at [facility], [address] [place] [id number] Joshua Esposito MD LAB_1 Final Result [facility] [phone] * COLONOSCOPY [[id number]] (11/02/2015 8:11 AM OVERHEAD CLEANER MAINTAINER) 11/02/2015 8:11 AM OVERHEAD CLEANER MAINTAINER Narrative [facility] - 11/02/2015 8:42 AM OVERHEAD CLEANER MAINTAINER Patient Name: Kobi Tran Procedure Date: 11/02/2015 8:11 AM Date of : 1960 Age: 55 Gender: Male Note Status: Finalized Procedure: Colonoscopy Indications: High risk colon cancer surveillance: Personal history of colonic polyps Providers: Kenney Cavazos, Juan Manuel Mcpherson, RN, Trini Richmond LPN Referring MD: Medicines: Midazolam 4 mg IV, Fentanyl 100 micrograms IV Complications: No immediate complications. Procedure: Pre-Anesthesia Assessment: - Prior to the procedure, a History and Physical was performed, and patient medications and allergies were reviewed. The patient is competent. The risks and benefits of the procedure and the sedation options and risks were discussed with the patient. All questions were answered and informed consent was obtained. Patient identification and proposed procedure were verified by the physician in the pre-procedure area. Mental Status Examination: alert and oriented. Airway Examination: normal oropharyngeal airway and neck mobility. Respiratory Examination: clear to auscultation. CV Examination: normal. Prophylactic Antibiotics: The patient does not require prophylactic antibiotics. Prior Anticoagulants: The patient has taken no previous anticoagulant or antiplatelet agents. ASA Grade Assessment: II - A patient with mild systemic disease. After reviewing the risks and benefits, the patient was deemed in satisfactory condition to undergo the procedure. The anesthesia plan was to use moderate sedation / analgesia (conscious sedation). Immediately prior to administration of medications, the patient was re-assessed for adequacy to receive sedatives. The heart rate, respiratory rate, oxygen saturations, blood pressure, adequacy of pulmonary ventilation, and response to care were monitored throughout the procedure. The physical status of the patient was re-assessed after the procedure. After I obtained informed consent, the scope was passed under direct vision. Prior to sedation, patient identity and procedure was reverified. Throughout the procedure, the patient's blood pressure, pulse, and oxygen saturations were monitored continuously. The PCF-H190L was introduced through the anus and advanced to the terminal ileum. The colonoscopy was performed without difficulty. The patient tolerated the procedure well. The quality of the bowel preparation was good. Findings: The perianal and digital rectal examinations were normal. The terminal ileum appeared normal. A 4 mm polyp was found in the rectum. The polyp was sessile. The polyp was removed with a cold biopsy forceps. Resection and retrieval were complete. Multiple small-mouthed diverticula were found in the sigmoid colon. Small internal hemerrhoids. Impression: - The examined portion of the ileum was normal. - One 4 mm polyp in the rectum. Resected and retrieved. - Diverticulosis in the sigmoid colon. Recommendation: - Return to refering physician - High fiber diet. - Await Path results. I will contact with letter in 1-2 weeks. - Repeat colonoscopy in 5 years for surveillance. Procedure Code(s): --- Professional --- 77213, PT, Colonoscopy, flexible; with biopsy, single or multiple Diagnosis Code(s): --- Professional --- K57.30, Diverticulosis of large intestine without perforation or abscess without bleeding K62.1, Rectal polyp Z86.010, Personal history of colonic polyps Z12.11, Encounter for screening for malignant neoplasm of colon CPT copyright 2014 [employer]. All rights reserved. The codes documented in this report are preliminary and upon application support administrator review may be revised to meet current compliance requirements. Attending Participation: MD Kenney Rodrigues, 11/02/2015 8:41 AM Number of Addenda: 0 Note Initiated On: 11/02/2015 8:11 AM Procedure Note Kenney Cavazos MD - 11/02/2015 Patient Name: Kobi Tran Procedure Date: 11/02/2015 8:11 AM Date of : 1960 Age: 55 Gender: Male Note Status: Finalized Procedure: Colonoscopy Indications: High risk colon cancer surveillance: Personal history of colonic polyps Providers: Juan Manuel Lazaro RN, Trini Richmond LPN Referring MD: Medicines: Midazolam 4 mg IV, Fentanyl 100 micrograms IV Complications: No immediate complications. Procedure: Pre-Anesthesia Assessment: - Prior to the procedure, a History and Physical was performed, and patient medications and allergies were reviewed. The patient is competent. The risks and benefits of the procedure and the sedation options and risks were discussed with the patient. All questions were answered and informed consent was obtained. Patient identification and proposed procedure were verified by the physician in the pre-procedure area. Mental Status Examination: alert and oriented. Airway Examination: normal oropharyngeal airway and neck mobility. Respiratory Examination: clear to auscultation. CV Examination: normal. Prophylactic Antibiotics: The patient does not require prophylactic antibiotics. Prior Anticoagulants: The patient has taken no previous anticoagulant or antiplatelet agents. ASA Grade Assessment: II - A patient with mild systemic disease. After reviewing the risks and benefits, the patient was deemed in satisfactory condition to undergo the procedure. The anesthesia plan was to use moderate sedation / analgesia (conscious sedation). Immediately prior to administration of medications, the patient was re-assessed for adequacy to receive sedatives. The heart rate, respiratory rate, oxygen saturations, blood pressure, adequacy of pulmonary ventilation, and response to care were monitored throughout the procedure. The physical status of the patient was re-assessed after the procedure. After I obtained informed consent, the scope was passed under direct vision. Prior to sedation, patient identity and procedure was reverified. Throughout the procedure, the patient's blood pressure, pulse, and oxygen saturations were monitored continuously. The PCF-H190L was introduced through the anus and advanced to the terminal ileum. The colonoscopy was performed without difficulty. The patient tolerated the procedure well. The quality of the bowel preparation was good. Findings: The perianal and digital rectal examinations were normal. The terminal ileum appeared normal. A 4 mm polyp was found in the rectum. The polyp was sessile. The polyp was removed with a cold biopsy forceps. Resection and retrieval were complete. Multiple small-mouthed diverticula were found in the sigmoid colon. Small internal hemerrhoids. Impression: - The examined portion of the ileum was normal. - One 4 mm polyp in the rectum. Resected and retrieved. - Diverticulosis in the sigmoid colon. Recommendation: - Return to refering physician - High fiber diet. - Await Path results. I will contact with letter in 1-2 weeks. - Repeat colonoscopy in 5 years for surveillance. Procedure Code(s): --- Professional --- 80139, PT, Colonoscopy, flexible; with biopsy, single or multiple Diagnosis Code(s): --- Professional --- K57.30, Diverticulosis of large intestine without perforation or abscess without bleeding K62.1, Rectal polyp Z86.010, Personal history of colonic polyps Z12.11, Encounter for screening for malignant neoplasm of colon CPT copyright 2014 [employer]. All rights reserved. The codes documented in this report are preliminary and upon application support administrator review may be revised to meet current compliance requirements. Attending Participation: MD Kenney Rodrigues, 11/02/2015 8:41 AM Number of Addenda: 0 Note Initiated On: 11/02/2015 8:11 AM Kenney Cavazos MD DIGESTIVE CARE Final Result [facility] [place], [place] from Last 3 Months or Most Recently Relevant to Health Maintenance Insurance [facility] [employer] [facility] [employer] Advance Directives * Full Code (Latest Code Status on File) Date Activated Date Inactivated Comments 06/16/2015 2:23 PM 06/16/2015 5:36 PM Care Teams Solutions Architect Consultant Relationship Specialty Start Date End Date Suellen Faye PA-C [address] [place] [address] PCP - General Physician Side Trimmer 01/24/16
--- OUTSIDE RECORDS SUMMARY | 2024-12-31 22:30 | XMS_ITS | Encounter Summary ---
Author Organization [facility] Address [address], [place] [address] Care Team Providers Care Block Hand Name Role Phone Suellen Faye PA-C Primary Care Provider Encounter Details Date Type Department Care Team (Late st Contact Info) Description 11/02/2015 Consent for Procedure/Treatme nt [facility] INFORMED CONSENT RECORD Social History Tobacco Use [...] R/O COVID19 01/22/2021 01/22/2021 01/23/2021 4:01 AM PRESCHOOL PARAPROFESSIONAL R/O COVID19 12/09/2021 12/09/2021 12/10/2021 2:48 PM PRESCHOOL PARAPROFESSIONAL COVID19 12/09/2021 12/09/2021 12/29/2021 3:17 AM PRESCHOOL PARAPROFESSIONAL documented as of this encounter Care Teams Block Hand Relationship Specialty Start Date End Date Suellen Faye PA-C [address] [place] [address] PCP - General Physician Fish And Wildlife Technician 01/24/16 documented as of this encounter
--- OUTSIDE RECORDS SUMMARY | 2024-12-31 22:30 | XMS_ITS | Encounter Summary ---
Author Organization [facility] Address [address], [place] [address] Care Team Providers Care Liquor Department Manager Name Role Phone Suellen Faye PA-C Primary Care Provider Encounter Details Date Type Department Care Team (Late st Contact Info) Description 10/12/2014 Correspondence [facility] Radiology [address] [place] [id number] Radiology, Provider MRI SAFETY SHEET AND COMPATIBILITY FORM Social History Tobacco Use Types Packs/Day Years [...] R/O COVID19 01/22/2021 01/22/2021 01/23/2021 4:01 AM SOFTWARE CLERK R/O COVID19 12/09/2021 12/09/2021 12/10/2021 2:48 PM SOFTWARE CLERK COVID19 12/09/2021 12/09/2021 12/29/2021 3:17 AM SOFTWARE CLERK documented as of this encounter Care Teams Liquor Department Manager Relationship Specialty Start Date End Date Suellen Faye PA-C [address] [place] [address] PCP - General Physician Supervisor Felting 01/24/16 documented as of this encounter
[2024-12-31 22:33] LABS: Bacteria Urine Few; RBC Urine 0-2 (0-2)
== END 2024-12-31 23:04 | disposition home or self-care (01) ==
PROVIDERS: Emergency Provider Family Medicine; PCP Family Medicine
DX: N39.0 Urinary tract infection, site not specified (principal)
CPT/HCPCS: 81001; 87086; 99283